=== PATIENT | male | born 1990 | race Caucasian/White ===

== ENCOUNTER 2020-06-19 02:02 | Emergency (ER) | payer SELFPAY ==
[~2020-06-19] VITALS: Ht 175.3 cm; Wt 74.9 kg
[2020-06-19 02:11] VITALS: Ht 175.3 cm; Wt 74.9 kg
[2020-06-19] MEDS ORDERED: SEROQUEL XR300 M1 PO (05:27)
[2020-06-19 08:20] VITALS: BP 117/75
== END 2020-06-19 08:20 | disposition home or self-care (01) ==
LOC: ED 02:02
DX: F20.9 Schizophrenia, unspecified (principal); Z88.6 Allergy status to analgesic agent
CPT/HCPCS: 82962